=== PATIENT | male | born 2005 | race African-American/Black ===

== ENCOUNTER 2025-05-11 21:25 | Emergency (ER) | payer OTHER, SELFPAY ==
[2025-05-11 21:26] VITALS: BP 140/75; PULSE 67; RESP 18; TEMP 37.2; O2SAT 100; BMI 25.9
[2025-05-11 21:49] VITALS: PULSE 64; RESP 18; O2SAT 100
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
[2025-05-11 23:19] VITALS: BP 127/51; PULSE 58; RESP 16; TEMP 36.9; O2SAT 99
== END 2025-05-11 23:34 | disposition home or self-care (01) ==
PROVIDERS: Emergency Provider Emergency Medicine; Visit Provider Emergency Medicine
DX: S09.90XA Unspecified injury of head, initial encounter (principal); R21 Rash and other nonspecific skin eruption; V18.0XXA Pedal cycle driver injured in noncollision transport accident in nontraffic accident, initial encounter; S50.02XA Contusion of left elbow, initial encounter
CPT/HCPCS: 70450; 73080; 99282